=== PATIENT | male | born 1965 | race Caucasian/White ===

== ENCOUNTER → 2023-11-23 14:22 | Outpatient (BNVA) | payer SELFPAY | PROVIDERS: Visit Provider Physician Assistant ==

== ENCOUNTER 2025-02-14 09:55 | Emergency (ER) | payer OTHER, SELFPAY ==
--- NOTE | ~2025-02-14 | XR_ITS ---
EXAMINATION: XR CHEST 2 VIEWS HISTORY: YOO COMPARISON: There are no prior studies for comparison. FINDINGS: PA and lateral views of the chest are submitted. The lungs are expanded and clear. There is no pleural effusion, pneumothorax, or pulmonary vascular congestion. The heart is normal in size. There is mild degenerative disc disease of the spine. XR/XR chest 2V IMPRESSION: Clear lungs. Electronically signed by: Jacobo Hernández MD 02/14/2025 10:43 AM EDT
--- NOTE | 2025-02-14 09:58 | ECG_ITS ---
Test Reason : cp Blood Pressure : */* mmHG Vent. Rate : 104 BPM Atrial Rate : 104 BPM P-R Int : 132 ms QRS Dur : 80 ms QT Int : 396 ms P-R-T Axes : 68 -6 57 degrees QTcB Int : 520 ms Sinus tachycardia Prolonged QT Abnormal ECG No previous ECGs available Referred By: Ryann Barth Electronically Signed By: Dez White
--- NOTE | 2025-02-14 10:01 | ED.GENADULT ---
HPI - General Adult General Chief complaint: Chest Pain Stated complaint: SOB, chest pressure, weakness Time Seen by Provider: 02/14/25 10:05 Source: patient Mode of arrival: ambulatory Limitations: no limitations History of Present Illness ED Provider: TAMEKA HPI narrative: 59 yo male with ADHD, HTN, HLD here with c/o 1 month of dyspnea on exertion and central chest pain when he goes up the stairs. This was not preceded by travel or URI. He notes that he has to rest after going up stairs. Today same thing happened and it hasn't gone away. He feels central chest pressure, YOO, the pain goes to the neck. He went to [place] about a week ago but had symptoms prior to the trip. He has told his PCP but no ECHO, stress, cath ordered. He has no family hx o heart disease. also has a chronic rash red rings with central clearing - his PCP gave him hydrocortisone which isn't helping. MD complaint: chest pain, YOO Onset (ago): month(s) (1) Location: chest Radiation: neck Severity: moderate Quality: aching Pain Consistency: intermittent Relieving factors: none Exacerbating factors: other (exertion) Associated symptoms: chest pain and shortness of breath Treatments prior to arrival: none Related Data Allergies Allergy/AdvReac Type Severity Reaction Status Date / Time No Known Allergies Allergy Verified 02/14/25 12:46 Review of Systems Review of Systems: Constitutional : No Weight loss, No Fever, No Chills ENT/Mouth : No sore throat, No Rhinorrhea Eyes: No Eye Pain, No Swelling Cardiovascular : pos Chest Pain, pos SOB, pos Dyspnea on Exertion, No Orthopnea, No Edema, No Palpitations Respiratory : No Cough, No Sputum Gastrointestinal : no Nausea, No Vomiting, No Diarrhea, No abdominal Pain, No Hematochezia, No Melena Genitourinary : No Dysuria, No Urinary Frequency Musculoskeletal : No joint pain, No Myalgias, No Joint Swelling Skin : No Skin Lesions, No rash Neuro : No Weakness, No Numbness, No Dizziness, No Headache All other systems reviewed and are negative [facility] Past Medical History Attestation statement: The following information was validated with the patient. Source: old records reviewed Medical History ADHD Hyperlipidemia HTN (hypertension) Social History Social History (Updated 02/14/25 @ 11:05 by Afua Horn DO) Alcohol intake: never Patient Tobacco Use Status: Never used Tobacco Smoked in Last 30 Days: No Use of substances other than those prescribed or required for medical reasons: Yes Substance Use Type: Marijuana Advance Directives: No Advance Directives Information Provided: Yes Physical Exam ED Vital Signs: Vital Signs - 24 hr 02/14/25 10:04 02/14/25 11:52 02/14/25 12:00 Temperature 97.5 F 97.9 F 97.9 F Pulse Rate 104 H 78 82 Respiratory Rate 16 13 14 Blood Pressure 138/81 125/63 104/49 L Pulse Oximetry 98 95 99 Oxygen Delivery Method Room Air Room Air Room Air BMI result Body Mass Index 25.3 Appearance: Alert. Oriented X3. No acute distress. Eyes: Pupils equal, round and reactive to light. ENT: Pharynx normal. Neck: Normal inspection. Neck supple. CVS: Normal heart rate and rhythm. Pulses normal. Respiratory: No respiratory distress. Breath sounds normal. Abdomen: Soft and nontender. Skin: Skin warm and dry. Normal skin color. Normal skin turgor. Rash in plaques across trunk/ext they are pink with scaled border and central clearing looks like ringworm or EM Extremities: No lower extremity edema. No calf ttp Neuro: Oriented X 3. No motor deficit. No sensory deficit. CN2-12 intact Course Course Course Narrative: This is a rapid medical exam performed by Alisha Barth NP: Additional HPI, ROS, PE not included below will be deferred to primary provider. Patient is a 59-year-old male with history of HTN, high cholesterol, depression and anxiety presenting to the ED with complaint of dyspnea on exertion going up one flight of stairs, feels weak, shaky, chest pressure since this morning. Denies cough. Denies current chest pressure but has pressure up by his throat. Plan: EKG, labs, CXR Reevaluation(s) Reevaluation #1: will try SL nitro still has pain with IV morphine Dr. White notified at 1140am 1143am pain is 1/10 now Medications Administered Discontinued Medications Generic Name Dose Route Start Last Admin Trade Name Freq PRN Reason Stop Dose Admin Aspirin 81 mg 02/14/25 10:48 02/14/25 10:54 Aspirin 81 Mg Tab.Chew PO 02/14/25 10:49 81 mg ONCE ONE Administration Magnesium Sulfate 2 gm in 50 mls @ 25 mls/hr 02/14/25 10:25 02/14/25 12:47 Magnesium Sulfate/H2o IV 02/14/25 12:24 Infused ONCE ONE Infusion Lactated Ringer's 1,000 mls @ 999 mls/hr 02/14/25 11:32 02/14/25 12:02 Lr IV 02/14/25 12:32 999 mls/hr .Q1H1M ONE Administration Morphine Sulfate 4 mg 02/14/25 10:33 02/14/25 10:54 Morphine Sulfate 4 Mg/Ml Cartridge IVPUSH 02/14/25 10:34 4 mg ONCE ONE Administration Protocol Nitroglycerin 0.4 mg 02/14/25 11:32 02/14/25 11:59 Nitroglycerin 0.4 Mg Tab.Subl SUBLINGUAL 02/14/25 11:33 0.4 mg ONCE ONE Administration Medical Decision Making Medical Decision Making MDM Narrative: 59 yo male with ADHD, HTN, HLD here with c/o YOO and chest pain with exertion responds to rest - today it didn't he still has some active symptoms in his neck. He has risk factors for CAD but no known CAD. He denies recent illness does have a rash x 2 months not responding to topical steroids. At this time will need trop x 2, EKG, ddimer I do find his symptoms of angina concerning will involve cardiology. Given duration unlikely to be dissection and with recent trip though symptoms preceding I am going to order ddimer Differential Diagnosis Differential Diagnoses: The differential diagnosis associated with the presentation includes angina, ACS, unstable angina Admission/Observation Consideration of admission/observation: Escalation of care including admission/observation considered start on aspirin, heparin, Christopher will work on transfer ECHO ordered now Consult Healthcare Provider Management of the patient was discussed with: Hospitalist and Combination Man (Christopher) Lab Data MDM Lab Attestation statement: I reviewed the patient's lab results. 02/14/25 10:20 02/14/25 10:18 Labs: Lab Results 02/14/25 02/14/25 02/14/25 Range/Units 10:18 10:20 12:46 WBC 6.8 (4.8-10.8) X10*3/uL RBC 5.19 (4.60-5.80) X10*6/uL Hgb 14.6 (14.0-18.0) g/dl Hct 43.2 (42.0-52.0) % MCV 83.2 (80.0-98.0) fL MCH 28.1 (27.0-33.0) pg MCHC 33.8 (31.0-36.0) g/dl RDW 14.3 (11.0-16.0) % Plt Count 311 (160-400) X10*3/uL MPV 10.0 (9.4-12.4) fL Immature Gran % (Auto) 0.3 (0.0-0.4) % Neut % (Auto) 73.9 H (45-73) % Lymph % (Auto) 17.0 L (20-40) % [place] % (Auto) 7.5 (2-11) % Eos % (Auto) 0.0 (0-4) % Baso % (Auto) 1.3 (0-2) % Lymph # (Auto) 1.2 (1.2-4.9) X10*3/uL [place] # (Auto) 0.5 (0.1-1.2) X10*3/uL Eos # (Auto) 0.0 (0.0-0.4) X10*3/uL Baso # (Auto) 0.1 (0.0-0.2) X10*3/uL Abs Immat Gran (auto) 0.02 (0.00-0.03) X10*3/uL Absolute Neuts (auto) 5.0 (2.0-8.3) x10*3/uL Absolute Nucleated RBC 0.000 (0.0-0.012) X10*3/uL Nucleated RBC % (auto) 0.0 (0.0-0.2) /100WBC PT 11.1 (10.9-12.4) SEC INR 1.0 (0.9-1.1) D-Dimer High Sensitivty < 150 NG/ML Sodium 139 (135-145) mmol/L Potassium 3.8 (3.3-5.1) mmol/L Chloride 102 (96-108) mmol/L Carbon Dioxide 22 (22-29) mmol/L Anion Gap 19 (12-20) BUN 24 H (9-16) mg/dL Creatinine 1.24 (0.5-1.4) mg/dL Estim Creat Clear Calc 59.3 Estimated GFR > 60 Random Glucose 138 H (60-115) mg/dL Calcium 9.9 (8.4-10.2) mg/dL Total Bilirubin 0.6 (0.0-1.0) mg/dL AST 31 (5-37) U/L ALT 30 (0-40) U/L Alkaline Phosphatase 67 (39-117) U/L Troponin I High Sens < 2.7 2.7 (<3.5-35.0) ng/L B-Natriuretic Peptide < 10 (<100) pg/mL Total Protein 8.0 (6.5-8.0) g/dL Albumin 5.3 H (3.5-5.0) g/dL Ethyl Alcohol < 10 mg/dL Influenza Type A (PCR) NEGATIVE (Negative) Influenza Type B (PCR) NEGATIVE (Negative) RSV RNA Qual (PCR) NEGATIVE (Negative) SARS-CoV-2 RNA (RT-PCR) NEGATIVE (Negative) Independent Interpretation I performed an independent interpretation of an: EKG and Plain X-Ray (normal ) Interpretation: Rate: 104 Rhythm: sinus tach [place]: left Normal P waves. Normal [place]. Normal QRS complex. ST T wave : no JOVANY qTC: 520 prior studies: no acute ischemia, qtc is prolonged The study has been interpreted contemporaneously by me. EKG #2, no JOVANY in posterior leads, NSR, qtc 414, no other ischemia, QRS normal Radiology Impression Discussion of test interpretation with radiology: I have reviewed the radiologist's reading. External Record Review External record reviewed: Outpatient record Critical Care Time Critical Care Time Critical Care Time: Yes Total Critical Care Time: 45 Attestation: Time is exclusive of separately billable procedures. Time includes: direct patient care, patient reassessment, coordination of patient care, interpretation of data (laboratory data, pulse oximetry, and chest xrays), review of patient's medical records, medical consultation and documentation of patient care. Procedures excluded from critical care time: electrocardiography. Discharge Plan Discharge Clinical Impression: Angina pectoris, unstable Patient Disposition: [facility] Transfer Details: [facility] Print Language: Andorran
[2025-02-14 10:04] VITALS: BP 138/81; PULSE 104; RESP 16; TEMP 36.4; O2SAT 98; BMI 25.5
[2025-02-14 10:24] LABS: MANUAL DIFF FLAG NO
[2025-02-14 10:31] LABS: Basophils Absolute Auto 0.1 X10*3/uL (0.0-0.2); Basophils Percent Auto 1.3 % (0-2); Hematocrit 43.2 % (42.0-52.0); Hemoglobin 14.6 g/dl (14.0-18.0); Imm Gran Abs Auto 0.02 X10*3/uL (0.00-0.03); Imm Gran Pct Auto 0.3 % (0.0-0.4); Lymphocytes Absolute Auto 1.2 X10*3/uL (1.2-4.9); Mean Corpuscular HGB Conc 33.8 g/dl (31.0-36.0); Mean Corpuscular Hemoglobin 28.1 pg (27.0-33.0); Mean Corpuscular Volume 83.2 fL (80.0-98.0); Monocytes Absolute Auto 0.5 X10*3/uL (0.1-1.2); Monocytes Percent Auto 7.5 % (2-11); Neutrophils Percent Auto 73.9 % (45-73); Platelet Count 311 X10*3/uL (160-400); Red Blood Count 5.19 X10*6/uL (4.60-5.80); Red Cell Distribution Width 14.3 % (11.0-16.0); White Blood Count 6.8 X10*3/uL (4.8-10.8)
[2025-02-14 10:32] LABS: Prothrombin Time 11.1 SEC (10.9-12.4)
[2025-02-14] MEDS: Magnesium Sulfate/H2O 2 GM/50 ML PIGGYBACK IV (10:36)
[2025-02-14 10:38] LABS: D Dimer High Sensitivity < 150 NG/ML
--- NOTE | 2025-02-14 10:48 | PC.NURSE ---
Patient reporting chest pain with exertion and sob that has worsened over the last month. Reports was at work today and had to stop half way up a flight of stairs to take a break. Normally chest pain resolves with rest but today his legs felt weak and chest pain was not going away. Patient with rash to left wrist, back and feet. States he has had the rash for about a month and it is itchy- was given hydrocortisone by pcp.
[2025-02-14 10:51] LABS: Alanine Aminotransferase 30 U/L (0-40); Albumin Level 5.3 g/dL (3.5-5.0); Alkaline Phosphatase 67 U/L (39-117); Anion Gap 19 (12-20); Aspartate Amino Transferase 31 U/L (5-37); Bilirubin Total 0.6 mg/dL (0.0-1.0); Blood Urea Nitrogen 24 mg/dL (9-16); Calcium 9.9 mg/dL (8.4-10.2); Carbon Dioxide 22 mmol/L (22-29); Chloride 102 mmol/L (96-108); Creatinine Clr Calc Pharmacy 59.3; Estimated Glomerular Filt Rate > 60; Glucose Random 138 mg/dL (60-115); Potassium 3.8 mmol/L (3.3-5.1); Sodium 139 mmol/L (135-145)
[2025-02-14 10:52] LABS: Troponin-I High Sensitivity < 2.7 ng/L (<3.5-35.0)
[2025-02-14] MEDS: Morphine Sulfate 4 MG/ML CARTRIDGE IVPUSH (10:54)
[2025-02-14] MEDS: Aspirin 81 MG TAB.CHEW PO (10:54)
[2025-02-14 11:06] LABS: Influenza A PCR NEGATIVE (Negative); Influenza B PCR NEGATIVE (Negative); Resp Syncy Virus RNA Qual PCR NEGATIVE (Negative); SARS COV2 PCR INHOUSE NEGATIVE (Negative)
[2025-02-14 11:30] LABS: Ethanol < 10 mg/dL
[2025-02-14 11:35] LABS: B Type Natriuretic Peptide < 10 pg/mL (<100)
--- NOTE | 2025-02-14 11:41 | ECG_ITS ---
Test Reason : chest pain please obtain posterior view Blood Pressure : */* mmHG Vent. Rate : 86 BPM Atrial Rate : 86 BPM P-R Int : 138 ms QRS Dur : 68 ms QT Int : 346 ms P-R-T Axes : 55 -30 29 degrees QTcB Int : 414 ms Normal sinus rhythm Inferior infarct , age undetermined Abnormal ECG When compared with ECG of 14-Feb-2025 09:57, Nonspecific T wave abnormality now evident in Anterior leads QT has shortened Referred By: Afua Horn Electronically Signed By: Dez White
[2025-02-14 11:52] VITALS: BP 125/63; PULSE 78; RESP 13; TEMP 36.6; O2SAT 95
[2025-02-14] MEDS: Nitroglycerin 0.4 MG TAB.SUBL SUBLINGUAL (11:59)
[2025-02-14 12:00] VITALS: BP 104/49; PULSE 82; RESP 14; TEMP 36.6; O2SAT 99
[2025-02-14] MEDS: Lactated Ringers 1,000 ML 999 ML IV (12:02)
--- NOTE | 2025-02-14 12:47 | CA_ITS ---
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 The visually estimated ejection fraction is between 60-65%. - There is mild septal asymmetric hypertrophy. - Normal right ventricular cavity size and systolic function. - There is no evidence of pericardial effusion. Findings Left Ventricle Normal left ventricular size and systolic function. The visually estimated ejection fraction is between 60-65%. There is no evidence of regional wall motion abnormalities. Diastolic function is normal for age. There is mild septal asymmetric hypertrophy. Right Ventricle Normal right ventricular cavity size and systolic function. Atria The left atrium is normal in size. The right atrium is normal in size. Aortic Valve Normal aortic valve structure and function. There is no aortic valve stenosis. There is no aortic valve regurgitation. Mitral Valve The mitral valve appears normal. There is trace mitral valve regurgitation. There is no mitral valve stenosis. Pulmonic Valve The pulmonic valve is likely normal. Tricuspid Valve Normal tricuspid valve structure. There is no tricuspid valve regurgitation. Tricuspid regurgitation envelope is inadequate for calculation of right ventricular systolic pressure. Normal right atrial pressure. Great Vessels All visible segments of the aorta are normal in size. Venous The inferior vena cava is normal in size and collapses greater than 50% with inspiration. Pericardium/Pleural There is no evidence of pericardial effusion. Measurements 2D Linear Measurements IVSd: 0.64 0.6-0.9/0.6-1.0 cm LVIDd: 5.17 3.9-5.3/4.2-5.9 cm LVIDd Index: 2.86 2.4-3.2/2.2-3.1 cm/m2 LVIDs: 3.73 2.0-3.6 cm LVPWd: 0.63 0.7-1.1 cm LA Diam: 3.50 2.7-3.8/3.0-4.0 cm LAIDs Index: 1.93 1.5-2.3 cm/m2 LV Mass: 133.80 67-162/88-224 g LV Mass Index: 73.92 43-95/49-115 g/m2 LVOT Diam: 2.00 3.0+(-)1.3 cm 2D Systolic Function EF 4C: 64.00 >55% EF 2C: 66.00 >55% EF BiP: 64.90 >55% Mitral Valve MV Pk E: 0.69 MV PK A: 0.67 MV Decel Time: 219.00 E/A: 1.00 E'Lateral: 13.60 E'Medial: 8.27 E/E' Med: 8.40 E/E' Lat: 5.10 PHT: 64.00 MVA PHT: 3.44 Decel [place]: 3.17 Aortic Valve AoV Pk Evin: 1.38 AoV Pk Grad: 8.00 KAYLEY: 2.42 LVOT LVOT Pk Evin: 1.10 LVOT Mn Evin: 0.61 LVOT VTI: 0.20 LVOT Pk Grad: 5.00 LVOT Mn Grad: 2.00 LVOT Diam: 2.00 LVOT Area: 3.14 Diastolic Function MV Pk E: 0.69 MV Pk A: 0.67 E/A: 1.00 E'Medial: 8.27 E/E' Med: 8.40 E' Laterial: 13.60 E/E' Lat: 5.10 Right Ventricle TAPSE (mm): 20.30 TVS' Evin: 18.00 Tricuspid Valve RA Press: 3.00 Great Vessels Aorta Sinus of Valsalva: 3.10 2.0-3.5 cm Ao Asc: 3.40 2.1-3.4 cm Pulmonary Veins Pulm Vein S/D 1.50 Pulmonary Valve PV Pk Evin: 1.06 Peak PV Grad: 4.00 Updated in Other Vendor System with Status of Final Dez White MD electronically signed on 02/15/2025 11:21:37 AM with status of Final
[2025-02-14 12:56] VITALS: BMI 25.3
--- NOTE | 2025-02-14 13:00 | P.CONCA_ITS ---
History of Present Illness History of Present Illness Date of Service: 02/14/25 Requesting physician: Afua oHrn Chief complaint: SOB, chest pressure, weakness Narrative: 59-year-old gentleman presenting with unstable angina. He has been experiencing chest pressure and shortness of breath going up 1 flight of stairs. He said when he will reach the top he will rest for some time and these symptoms will improve and he will continue to do activities. Today after going half a flight of stairs he started getting significant shortness of breath and chest discomfort. This persisted afterwards and he was brought in the emergency department. Initial ECG did not show any dynamic changes. He was given nitroglycerin with improvement in symptoms but blood pressure was too soft to get further medications. At the time of interview he was symptom free. He is a nonsmoker. Does not drink alcohol. He has been on medications for depression and anxiety. Occasionally smokes marijuana but otherwise no drug abuse. [facility] Past Medical History Medical History ADHD Hyperlipidemia HTN (hypertension) Social History Social History (Updated 02/14/25 @ 11:05 by Afua Horn DO) Alcohol intake: never Patient Tobacco Use Status: Never used Tobacco Smoked in Last 30 Days: No Use of substances other than those prescribed or required for medical reasons: Yes Substance Use Type: Marijuana Advance Directives: No Advance Directives Information Provided: Yes Meds Allergies Allergy/AdvReac Type Severity Reaction Status Date / Time No Known Allergies Allergy Verified 02/14/25 12:46 Active Medications: Current Medications Heparin Sodium (Porcine) (Heparin Sodium,Porcine 5,000 Unit/Ml Vial) 2,900 unit 40 unit/kg (2900 unit) IVPUSH PROTOCOL BOLUS PRN; Protocol PRN Reason: 40 unit/kg - Heparin Protocol Heparin Sodium (Porcine) (Heparin Sodium,Porcine 5,000 Unit/Ml Vial) 5,700 unit 80 unit/kg (5700 unit) IVPUSH PROTOCOL BOLUS PRN; Protocol PRN Reason: 80 unit/kg - Heparin Protocol Heparin Sodium/Sodium Chloride (Heparin Sodium,Porcine/1/2ns) 25,000 unit in 250 mls @ 0 mls/hr IVCONT .Q0M GOMEZ; Protocol Physical Exam 2 Vital Signs: Vital Signs: Last Vital Signs Temp 97.9 F 02/14/25 12:00 Pulse 82 02/14/25 12:00 Resp 14 02/14/25 12:00 BP 104/49 L 02/14/25 12:00 Pulse Ox 99 02/14/25 12:00 O2 Del Method Room Air 02/14/25 12:00 BMI result Body Mass Index 25.3 GENERAL APPEARANCE: in no acute distress, pleasant. NECK: no carotid bruit, no jugular venous distention. SKIN: no suspicious lesions, warm and dry. HEART: no murmurs, regular rate and rhythm. LUNGS: clear to auscultation bilaterally. ABDOMEN: soft, nontender. EXTREMITIES: no edema. PERIPHERAL PULSES: equal. NEUROLOGIC: No gross deficits, AAO X 3 Objective Labs and Meds 02/14/25 10:20 02/14/25 10:18 Lab results: Laboratory Results - last 24 hr 02/14/25 02/14/25 10:18 10:20 WBC 6.8 RBC 5.19 Hgb 14.6 Hct 43.2 MCV 83.2 MCH 28.1 MCHC 33.8 RDW 14.3 Plt Count 311 MPV 10.0 Immature Gran % (Auto) 0.3 Neut % (Auto) 73.9 H Lymph % (Auto) 17.0 L [place] % (Auto) 7.5 Eos % (Auto) 0.0 Baso % (Auto) 1.3 Lymph # (Auto) 1.2 [place] # (Auto) 0.5 Eos # (Auto) 0.0 Baso # (Auto) 0.1 Abs Immat Gran (auto) 0.02 Absolute Neuts (auto) 5.0 Absolute Nucleated RBC 0.000 Nucleated RBC % (auto) 0.0 PT 11.1 INR 1.0 D-Dimer High Sensitivty < 150 Sodium 139 Potassium 3.8 Chloride 102 Carbon Dioxide 22 Anion Gap 19 BUN 24 H Creatinine 1.24 Estim Creat Clear Calc 59.3 Estimated GFR > 60 Random Glucose 138 H Calcium 9.9 Total Bilirubin 0.6 AST 31 ALT 30 Alkaline Phosphatase 67 Troponin I High Sens < 2.7 B-Natriuretic Peptide < 10 Total Protein 8.0 Albumin 5.3 H Ethyl Alcohol < 10 Influenza Type A (PCR) NEGATIVE Influenza Type B (PCR) NEGATIVE RSV RNA Qual (PCR) NEGATIVE SARS-CoV-2 RNA (RT-PCR) NEGATIVE Imaging Radiologist's impression: Impressions Chest X-Ray 02/14/25 10:05 IMPRESSION: Clear lungs. 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 No dynamic EKG changes. Initial troponin less than 2.7. He is currently symptom free. We are going to treat him like unstable angina. He is on heparin drip. Continue baby aspirin and add atorvastatin 80 mg daily. Due to soft blood pressure currently would avoid beta-blockers or nitrates. We will transfer him to [facility] for potential diagnostic cardiac catheterization. Check echocardiogram to assess for any wall motion abnormalities. Repeat cardiac troponin. Thank you for allowing me to participate in the care of your patient. Please feel free to contact me if you have any questions. Procedures Date of Service Date of Service: 02/14/25
[2025-02-14 13:12] LABS: Troponin-I High Sensitivity 2.7 ng/L (<3.5-35.0)
[2025-02-14] MEDS: Heparin Sodium,Porcine/1/2NS 25,000 UNIT/250 ML IV.SOLN 8.52 UNIT IVCONT (13:14)
[2025-02-14] MEDS: Heparin Sodium,Porcine 5,000 UNIT/ML VIAL 4000 UNIT IVPUSH (13:17)
--- NOTE | 2025-02-14 13:19 | PC.NURSE ---
ptt hd sent to lab provider aware stating to start heparin before hdd results
[2025-02-14 13:25] LABS: Prothrombin Time 11.5 SEC (10.9-12.4)
[2025-02-14 13:28] LABS: PTT Heparin Drip 27.3 SEC (53-77.9)
[2025-02-14 14:49] VITALS: BP 104/49; PULSE 82; RESP 14; TEMP 36.6; O2SAT 99
--- NOTE | 2025-02-14 15:00 | PC.NURSE ---
per primary RN Eleonora Albarado, pt was discharged to [facility] at approx 1449. Heparin was infusing at 8.52ml/hr, pt had received approx 12.78 ml of the infusion prior to departure
== END 2025-02-14 14:50 | disposition short-term general hospital (02) ==
PROVIDERS: Registered Nurse Emergency; Emergency Provider Emergency Medicine; PCP Internal Medicine
DX: I20.0 Unstable angina (principal); R07.9 Chest pain, unspecified; R06.02 Shortness of breath; I10 Essential (primary) hypertension; E78.5 Hyperlipidemia, unspecified; Z03.818 Encounter for observation for suspected exposure to other biological agents ruled out
CPT/HCPCS: 0241U; 36415; 71046; 80053; 80307; 83880; 84484; 85025; 85379; 85610; 85730; 93005; 93306; 96361; 96365; 96366; 96375; 99285; J1644; J2270; J3475; J7120; Q9957

== ENCOUNTER → 2025-02-14 10:05 | Outpatient (BNV) | payer OTHER, SELFPAY | PROVIDERS: Emergency Provider Emergency Medicine; PCP Internal Medicine; Visit Provider Radiology Diagnostic Radiology | DX: R06.02 Shortness of breath (principal) | CPT/HCPCS: 71046 ==

== ENCOUNTER → 2025-02-14 10:42 | Outpatient (BNV) | payer OTHER, SELFPAY | PROVIDERS: Emergency Provider Emergency Medicine; PCP Internal Medicine; Visit Provider Internal Medicine Cardiovascular Disease | DX: I20.0 Unstable angina (principal) | CPT/HCPCS: 99284 ==

== ENCOUNTER → 2025-02-15 23:59 | Outpatient (BNV) | payer OTHER, SELFPAY | PROVIDERS: PCP Internal Medicine; Visit Provider Internal Medicine Cardiovascular Disease | DX: I20.0 Unstable angina (principal) | CPT/HCPCS: 93458; 99152 ==

== ENCOUNTER 2025-03-07 13:42 | Outpatient (AMB) | payer OTHER, SELFPAY ==
--- NOTE | 2025-03-07 13:58 | MHC.OFFVIS ---
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 Allergies No Known Allergies Allergy (Verified 03/07/25 14:02) Medication List - Last Reconciled 03/07/25 by Zofia Marcial NP-C atomoxetine 60 mg PO QAM atorvastatin 40 mg PO DAILY benazepril 10 mg PO DAILY gabapentin 400 mg PO BEDTIME gabapentin 600 mg PO DAILY hydroxyzine pamoate 50 mg PO TID PRN quetiapine 75 mg PO tamsulosin mg PO venlafaxine ER 75 mg PO DAILY venlafaxine ER 150 mg PO DAILY HPI HPI f/up-cath 02/15- SOB: Details: Ever is a 60-year-old male with past medical history of hypertension, hyperlipidemia who recently presented to the [facility] Emergency room with increasing shortness of breath which had been occurring for the last few months. He also reported some chest pressure and left arm pain. He ruled out for ACS but was thought to have unstable angina and was transferred to [facility] for cardiac catheterization showing normal coronary arteries. Today he reports that he continues to have shortness of breath with stair climbing and he will get a tightness in his chest when feeling short of breath. He has an intermittent cough and tells me he did have to purchase some kzxr-[id number] cough medicine. He has a remote history of smoking, quit approximately 25 years ago. No known COPD or asthma. No palpitations, lightheadedness, presyncope, syncope. Taking meds as directed. He is asking if he can reduce his atorvastatin from 80 mg back to his usual 40 mg daily. [facility] Medical History (Updated 03/07/25 @ 18:14 by Zofia Marcial, BALJINDER-C) ADHD Hyperlipidemia HTN (hypertension) Social History Alcohol intake: never Patient Tobacco Use Status: Never used Tobacco Substance Use Type: Marijuana Review of Systems Const All systems reviewed & are unremarkable except as noted in HPI and below ENT Denies dizziness Card Details: chest tightness when sob Denies chest pain, Denies chest pain at rest, Denies chest pain with activity, Denies rapid heart rate, Denies pedal edema, Denies edema, Denies leg edema, Denies lightheadedness, Denies palpitations, Reports dyspnea, Reports dyspnea on exertion and Denies orthopnea Resp Denies cough, Reports dyspnea and Reports dyspnea on exertion GI Denies hematochezia and Denies change in stool character Musc Denies abnormal gait, Denies limited range of motion, Denies muscle cramps, Denies muscle weakness, Denies numbness, Denies radiating pain into limb, Denies stiffness and Denies tingling Neuro Denies abnormal gait, Denies dizziness, Denies numbness and Denies tingling Endo Denies palpitations Physical Exam Vital Signs: Last Vital Signs Pulse 75 03/07/25 13:59 BP 114/72 03/07/25 13:59 BMI result Body Mass Index 26.2 Const General: cooperative, healthy appearing, comfortable and no acute distress Orientation/consciousness: patient oriented x3 Neck Neck: Yes normal visual inspection Resp Effort & Inspection: normal respiratory effort Auscultation: clear to auscultation bilaterally, no rales, no rhonchi and no wheezes Cardio Rate: regular rate Rhythm: regular rhythm Heart sounds: S1 normal heart sound present, S2 normal heart sound present, no gallops, no murmurs and no rubs Neuro General: patient oriented x3 Extrem General: Yes normal to inspection, No no pedal edema and No calf tenderness Psych Appearance: grossly normal Mental Status: mental status grossly normal Speech and movement: Normal speech and movement present Assessment & Plan Assessment & Plan (1) Shortness of breath: Comment: 02/15/2025 showing normal coronary arteries Code(s): R06.02 - Shortness of breath Category: Medical Plan: Shortness of breath with exertional activities and stair climbing. Accompanied by chest tightness at times. Recent ER evaluation with normal troponins. EKG showed sinus rhythm, can not exclude prior inferior infarct. He underwent echocardiogram showing EF 60-65%, mild septal asymmetric hypertrophy, normal RV size and function, no pericardial effusion. He underwent cardiac catheterization for concern of unstable angina on 02/15/2025 showing normal coronary arteries. His symptom has been deemed noncardiac in nature. He continues to have symptoms and will refer him to pulmonology for evaluation. He is requesting Dr. Greer. Cardiology follow-up p.r.n. (2) S/P cardiac cath: Comment: 02/15/2025 normal coronary arteries Code(s): Z98.890 - Other specified postprocedural states Category: Surgical Plan: Right radial catheterization site well healed (3) HTN (hypertension): Code(s): I10 - Essential (primary) hypertension Category: Medical Plan: Blood pressure goal less than 130/80. Blood pressure today 114/72. His symptoms are not likely related to hypertension. Continue benazepril. Can be followed by PCP. (4) Hyperlipidemia: Code(s): E78.5 - Hyperlipidemia, unspecified Category: Medical Plan: Byron LDL goal less than 100. This has been followed by his PCP and he normally is on atorvastatin 40 mg daily. Since his hospitalization his dose was increased to 80 mg daily due to the concern for CAD. At this time will have him resume his prior dose of 40 mg daily. (5) Hospital discharge follow-up: Code(s): Z09 - Encounter for follow-up examination after completed treatment for conditions other than malignant neoplasm Category: Medical Plan: As above Plan I discussed with the patient the results of his cardiac assessments, which reassuringly confirmed no coronary artery disease. The patient's symptoms point towards a possible pulmonary origin and need for pulmonology referral. I explained the rationale for reverting to his previous atorvastatin dosage, acknowledging his well-controlled cholesterol status. We agreed upon a conservative approach, with a cardiovascular follow-up contingent upon new symptoms. His understanding of the plan and its components, including the adjustment in medication and scheduled tests, was clear and he voiced agreement. Orders: Referrals Pulmonology Referral R06.02 - Shortness of breath Patient Instructions: - Resume taking atorvastatin at 40 mg daily. - Monitor for any new or worsening symptoms like increased chest discomfort, sob or new palpitations. - Follow up with pulmonology when scheduled. . Patient was informed and verbally consented to the use of an ambient scribe for clinic note documentation during this visit. Visit time spent on chart review, interview, assessment, orders, documentation. Coding Level of Care Code Est Pt Level 4 (43801) Complex EM visit Add On G2211 Diagnoses Shortness of breath R06.02 S/P cardiac cath Z98.890 HTN (hypertension) I10 Hyperlipidemia E78.5 Hospital discharge follow-up Z09 Time Spent (min) 32
[2025-03-07 13:59] VITALS: BP 114/72; PULSE 75; BMI 26.2
== END 2025-03-07 14:55 | disposition home or self-care (01) ==
LOC: HO.HCS 13:42
PROVIDERS: PCP Internal Medicine; Visit Provider Nurse Practitioner Family
DX: R06.02 Shortness of breath (principal); Z98.890 Other specified postprocedural states; I10 Essential (primary) hypertension; E78.5 Hyperlipidemia, unspecified; Z09 Encounter for follow-up examination after completed treatment for conditions other than malignant neoplasm
CPT/HCPCS: 99214; G2211

== ENCOUNTER 2025-04-30 14:50 | Outpatient (AMB) | payer OTHER, SELFPAY ==
[2025-04-30 15:01] VITALS: BP 132/66; PULSE 85; O2SAT 98; BMI 26.3
--- NOTE | 2025-04-30 15:01 | A.OFFVIS_ITS ---
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 The patient is a 60-year-old gentleman former smoker who apparently started developing worsening shortness of breath. Initially [id number] will going up a flight of stairs with then in January he noticed significant shortness of breath even just taking a few steps also with some chest pressure and some send some fluttering in the chest. He was taken to the ER as he was working at [facility]. There he did have a cardiac workup including an EKG showing so abnormalities. He was ruled out for an ME and he had an echocardiogram which is reasonable except for some asymmetry hypertrophic areas. The patient was transferred to [facility] where he did undergo cardiac catheterization. His cardiac cath was clean without any evidence of any coronary artery disease. Nothing to explain the patient's symptoms. Therefore he was referred to Pulmonary. The patient did try an inhaler at some point did not feel like it was helping him. The symptoms are mainly when he is active. During the office visit we did go for brief walking oximetry. He is having some issues with the hip so he could not walk too fast. However did stairs. During the walk is oxygen was noted to be excellent at 98- 100%. 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 And for period of time during the ambulation the patient did have a fluttering episode with a heart rate did increase briefly but then it came down. This brings up the possibility of paradoxical types of arrhythmias. Indeed these arrhythmias could potentially cause it symptoms that he has been developing. He also has a history of sleep apnea. He does have an elevated Vinton score of 11/24. He did have a CPAP in the past but then it just stopped using it many years ago. I did explain to him that an in-lab sleep study will be beneficial in order to further address the question of any cardiac arrhythmias. The patient may also benefit from a Holter monitor I will leave that up to the discretion of Cardiology. The patient will undergo a it last s leep study and PFTs and will follow-up with the results. [facility] Medical History (Updated 04/30/25 @ 23:06 by Jeffrey Greer MD) MAURI (obstructive sleep apnea) Palpitations Dyspnea ADHD Hyperlipidemia HTN (hypertension) Social History Alcohol intake: never Patient Tobacco Use Status: Never used Tobacco Substance Use Type: Marijuana Review of Systems Const Denies fever(s) Eyes Reports no additional complaints ENT Reports no additional complaints Card Denies chest pain, Reports palpitations and Reports dyspnea on exertion Resp Reports dyspnea on exertion and Denies wheezing GI Reports no additional complaints Musc Reports abnormal gait, Reports myalgias and Reports arthralgias Skin/Breast Denies rash Neuro Reports abnormal gait Psych Reports no additional complaints Endo Reports palpitations Jesse/Lymph Reports no additional complaints Aller/Immun Denies wheezing Physical Exam Vital Signs: Last Vital Signs Pulse 85 04/30/25 15:01 BP 132/66 04/30/25 15:01 Pulse Ox 98 04/30/25 15:01 Oxygen Delivery Method Room Air 04/30/25 15:01 BMI result Body Mass Index 26.3 Const General: cooperative, healthy appearing, comfortable and no acute distress Orientation/consciousness: patient oriented x3 Neck Neck: Yes normal visual inspection Resp Effort & Inspection: normal respiratory effort Auscultation: clear to auscultation bilaterally, no rales, no rhonchi and no wheezes Cardio Rate: regular rate Rhythm: regular rhythm Heart sounds: S1 normal heart sound present and S2 normal heart sound present Neuro General: patient oriented x3 Extrem General: Yes normal to inspection, No no pedal edema and No calf tenderness Psych Appearance: grossly normal Mental Status: mental status grossly normal Speech and movement: Normal speech and movement present Assessment & Plan Assessment & Plan (1) Dyspnea: Code(s): R06.00 - Dyspnea, unspecified Category: Medical Qualifiers: Dyspnea type: dyspnea on exertion Qualified Code(s): R06.09 - Other forms of dyspnea (2) Palpitations: Code(s): R00.2 - Palpitations Category: Medical (3) MAURI (obstructive sleep apnea): Code(s): G47.33 - Obstructive sleep apnea (adult) (pediatric) Category: Medical Plan PFTs CXR without any acute disease in lab PSG Will request a holter monitor from cardiology F/U 2-3 months Orders: Orders RT PSG in-lab sleep study Today G47.33 - Obstructive sleep apnea (adult) (pediatric), R00.2 - Palpitations PFT pulmonary function test Today R06.09 - Other forms of dyspnea Coding Level of Care Code New Pt Level 4 (60732) Diagnoses Dyspnea on exertion R06.09 Dyspnea type: dyspnea on exertion Palpitations R00.2 MAURI (obstructive sleep apnea) G47.33 Time Spent (min) 40
== END 2025-04-30 15:40 | disposition home or self-care (01) ==
LOC: HO.HPS 14:51
PROVIDERS: PCP Internal Medicine; Referring Provider Nurse Practitioner Family; Visit Provider Hospitalist
DX: R06.09 Other forms of dyspnea (principal); R00.2 Palpitations; G47.33 Obstructive sleep apnea (adult) (pediatric)
CPT/HCPCS: 99204

== ENCOUNTER 2025-05-01 10:54 | Outpatient (REF) | payer OTHER, SELFPAY ==
--- NOTE | 2025-05-01 11:05 | PFT_ITS ---
Flows: FEV1: 105 % of predicted at 3.47 L FVC: 105 % of predicted at 4.47 L FEV1/FVC: 78 % Bronchodilator response: Absent Volumes: Total lung capacity: 98 % of predicted at 6.40 L Residual volume: 96 % of predicted at 1.87 L Slow vital capacity: 97 % of predicted at 4.53 L Expiratory reserve volume: 78 % of predicted at 0.91 L Diffusion capacity: Normal Impression: No obstructive or restrictive ventilatory defect. No bronchodilator response. Normal pulmonary function test. MTDD
[2025-05-01 12:01] VITALS: PULSE 68; O2SAT 100
== END 2025-05-01 10:55 | disposition home or self-care (01) ==
LOC: HO.RESP 10:54
PROVIDERS: PCP Internal Medicine; Visit Provider Hospitalist
DX: R06.09 Other forms of dyspnea (principal)
CPT/HCPCS: 94010; 94640; 94727; 94729

== ENCOUNTER → 2025-05-01 11:05 | Outpatient (BNV) | payer OTHER, SELFPAY | PROVIDERS: PCP Internal Medicine; Visit Provider Internal Medicine Pulmonary Disease | DX: R06.09 Other forms of dyspnea (principal) | CPT/HCPCS: 94060; 94727; 94729 ==

== ENCOUNTER → 2025-05-09 07:52 | Outpatient (REF) | payer OTHER, SELFPAY ==
--- NOTE | 2025-05-09 07:54 | HM_ITS ---
* Total monitoring time 3 days. * Underlying rhythm is sinus with an average rate of 73/Min. * Rare supraventricular ectopy. * Isolated ventricular ectopic beat. * No significant pauses or high-grade AV blocks. * No patient markers or diary events. MTDD
== END ==
LOC: HO.CARD 07:52
PROVIDERS: Visit Provider Nurse Practitioner Family
DX: R00.2 Palpitations (principal)
CPT/HCPCS: 93242

== ENCOUNTER → 2025-05-09 07:54 | Outpatient (BNV) | payer OTHER, SELFPAY | PROVIDERS: Visit Provider Internal Medicine | DX: I49.49 Other premature depolarization (principal); I49.3 Ventricular premature depolarization | CPT/HCPCS: 93244 ==

== ENCOUNTER 2025-09-03 05:34 | Emergency (ER) | payer OTHER, SELFPAY ==
[2025-09-03 05:39] VITALS: BP 126/75; PULSE 82; RESP 16; TEMP 36.4; O2SAT 100; BMI 23.7
--- NOTE | 2025-09-03 06:32 | PC.NURSE ---
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 it has light bleeding, abdominal pad being used as coverage. Pt reports thinking he has had a tetanus within the last 3 years and will look for the documents
[2025-09-03] MEDS: Lidocaine HCl 1 % MPF 5 ML VIAL INFILTRATI (07:16)
--- NOTE | 2025-09-03 07:48 | ED.SKABFB ---
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 Denies injury to other area. Tetanus up-to-date. Denies numbness, tingling, weakness Related Data Home Medications ?Medication ?Instructions ?Recorded ?Confirmed atomoxetine 60 mg capsule 60 mg PO QAM 03/07/25 03/07/25 atorvastatin 40 mg tablet 40 mg PO DAILY 03/07/25 03/07/25 benazepril 10 mg tablet 10 mg PO DAILY 03/07/25 03/07/25 gabapentin 400 mg capsule 400 mg PO BEDTIME 03/07/25 03/07/25 gabapentin 600 mg tablet 600 mg PO DAILY 03/07/25 03/07/25 hydroxyzine pamoate 50 mg capsule 50 mg PO TID PRN anxiety 03/07/25 03/07/25 quetiapine 25 mg tablet 75 mg PO 03/07/25 03/07/25 tamsulosin 0.4 mg capsule mg PO 03/07/25 03/07/25 venlafaxine 150 mg 150 mg PO DAILY 03/07/25 03/07/25 capsule,extended release 24 hr venlafaxine 75 mg capsule,extended 75 mg PO DAILY 03/07/25 03/07/25 release 24 hr Allergies Allergy/AdvReac Type Severity Reaction Status Date / Time No Known Allergies Allergy Verified 09/03/25 05:42 Review of Systems Review of Systems: Yes all other systems are reviewed and are negative Constitutional: Constitutional: Reports as per [facility] Past Medical History Attestation statement: The following information was validated with the patient. Source: old records reviewed Medical History (Updated 09/03/25 @ 07:52 by CITLALLI Hudson) MAURI (obstructive sleep apnea) Palpitations Dyspnea ADHD Hyperlipidemia HTN (hypertension) Social History Social History Alcohol intake: never Patient Tobacco Use Status: Never used Tobacco Use of substances other than those prescribed or required for medical reasons: Yes Substance Use Type: Marijuana Advance Directives: No Advance Directives Information Provided: Yes Physical Exam Vital Signs: Vital Signs: Last Vital Signs Temp 97.6 F 09/03/25 05:39 Pulse 82 09/03/25 05:39 Resp 16 09/03/25 05:39 BP 126/75 09/03/25 05:39 Pulse Ox 100 09/03/25 05:39 O2 Del Method Room Air 09/03/25 05:39 BMI result Body Mass Index 23.7 Const: General: cooperative, healthy appearing and no acute distress Orientation/consciousness: patient oriented x3 Limitations: no limitations HEENT: Head: Yes normal to inspection and Yes atraumatic Ears: hearing grossly normal bilaterally General nose exam: Normal external nose present Face and sinus: Yes normal facial exam Eyes: General: appearance normal, both eyes and all related structures EOM: EOMs intact bilaterally Neck: Neck: Yes normal visual inspection and Yes no meningeal signs Resp: Effort & Inspection: normal respiratory effort and no respiratory distress Cardio: Rate: regular rate Skin: Other: 2 cm superficial laceration noted to right forearm with subcu tissue present. No active bleeding. No surrounding erythema. Rashes: no rashes Neuro: General: patient oriented x3, tone normal and no meningeal signs Cranial nerves: Yes CN's II-XII intact bilaterally Gait exam (Neuro): Normal gait present Extrem: General: Yes normal to inspection Course Course Course Narrative: Results discussed with patient including worrisome signs and symptoms and strict return precautions, and when to return to the emergency department. They verbalized understanding and feel safe for discharge at this time. 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 On exam vital signs stable, NAD, nontoxic appearing, physical exam as noted above. Wound needing suture repair. low suspicion for fracture. Underlying structures appear intact. No need for antibiotics at this time Plan: Wound repair Please refer to course for remaining clinical decision making, interpretation of labs/imaging results, and discussions with consultants and/or family members. Differential Diagnosis Differential Diagnoses: The differential diagnosis associated with the presentation includes As above External Record Review External record reviewed: Inpatient record, Office record, Outpatient record, Prior outpatient labs, Prior outpatient radiology, Primary care record and Outside ED record Tests considered The following testing was considered but not selected: As above Chronic Conditions Patient?s care impacted by: Hypertension and Other Social Determinants Patient?s care significantly limited by Social Determinants of Health including: Other Social Determinant of Health Procedures Laceration Laceration 1: Site: upper extremity Side (If applicable): right Size (cm): 2 Description: linear Depth: simple, single layer Local Anesthetic: lidocaine 1% Amount of anesthesia used (mL): 2 Pre-repair: wound explored and irrigated extensively Skin layer closed with: nylon Size (cm): 5-0 Number of sutures: 5 Technique: simple, interrupted Discharge Plan Discharge Clinical Impression: Laceration of arm Qualifiers: Encounter type: initial encounter Laterality: right Qualified Code(s): S41.111A - Laceration without foreign body of right upper arm, initial encounter Patient Disposition: Home, Self-Care Instructions: Laceration (DC) Additional Instructions: Your wounds were repaired today in the emergency department. Keep dry and clean. You need to return to any emergency department, urgent care, or your PCPs office in 7-10 days for suture removal Apply bacitracin and or Neosporin daily Once sutures are removed apply anti scar cream like Mederma If area begins look infected, is red, there is drainage, streaking, or you have fever please return to the emergency department Prescriptions: No Action tamsulosin 0.4 mg capsule PO venlafaxine 75 mg capsule,extended release 24hr 75 mg PO DAILY venlafaxine 150 mg capsule,extended release 24hr 150 mg PO DAILY gabapentin 400 mg capsule 400 mg PO BEDTIME gabapentin 600 mg tablet 600 mg PO DAILY hydroxyzine pamoate 50 mg capsule 50 mg PO TID PRN (Reason: anxiety) atomoxetine 60 mg capsule 60 mg PO QAM quetiapine 25 mg tablet 75 mg PO benazepril 10 mg tablet 10 mg PO DAILY atorvastatin 40 mg tablet 40 mg PO DAILY Referrals: [facility] [place] Emergency Medicine [Provider Group] - 1 week Referral Note: for suture removal Reilly Pires MD [Primary Care Provider, Medical] - 1 week Referral Note: For suture removal Print Language: [place]
[2025-09-03 08:30] VITALS: BP 121/77; PULSE 80; RESP 16; TEMP 36.6; O2SAT 100
== END 2025-09-03 08:31 | disposition home or self-care (01) ==
PROVIDERS: Emergency Provider Emergency Medicine Emergency Medical Services; PCP Internal Medicine
DX: S51.811A Laceration without foreign body of right forearm, initial encounter (principal); I10 Essential (primary) hypertension; W26.8XXA Contact with other sharp object(s), not elsewhere classified, initial encounter; Y93.89 Activity, other specified; Y92.238 Other place in hospital as the place of occurrence of the external cause; Y99.0 Civilian activity done for income or pay; Z79.899 Other long term (current) drug therapy
CPT/HCPCS: 12001; 99284; J2003